=== PATIENT | female | born 1940 | race Caucasian/White ===

== ENCOUNTER 2018-12-24 21:04 | Emergency (ER) | payer MEDICARE ==
[2018-12-24] MEDS ORDERED: 0.9 % SODIUM CHLORIDE 1,000 ML BAG IV ONE (21:26)
--- NOTE | 2018-12-24 21:35 | Emergency Department Record ---
History of Present Illness - General Chief Complaint: General Stated Complaint: CONSTIPATION/STOMACH PAIN Time Seen by Provider: 12/24/18 21:22 Source: Patient Mode of Arrival: Ambulatory Limitations: No limitations - History of Present Illness Initial Comments: The patient is here due to constipation and diffuse AP for the last 2 days. She has been having smaller stools recently and has been taking stool softeners with no improvement. The patient denies any nausea, vomiting, diarrhea, fever, dysuria, or any hx of any abdominal surgeries. MD Complaint: Abdominal pain Onset/Timin -: Days(s) - Related Data Patient : No Home Medications Medication Instructions Recorded Confirmed Last Taken Fluoxetine HCl 40 mg PO DAILY 12/24/18 12/24/18 12/24/18 Levothyroxine Sodium [Synthroid] 88 mcg PO DAILY 12/24/18 12/24/18 12/24/18 Lisinopril 2.5 mg PO DAILY 12/24/18 12/24/18 12/24/18 Metoprolol Succinate 25 mg PO DAILY 12/24/18 12/24/18 12/24/18 Previous Rx's Medication Instructions Recorded Nitrofurantoin [place] [Macrobid] 100 mg PO BID #14 capsule 12/24/18 Allergies Allergy/AdvReac Type Severity Reaction Status Date / Time Sulfa (Sulfonamide Allergy HIVES Verified 12/24/18 21:09 Antibiotics) Travel Screening - Travel/Exposure Within Last 30 Days Have you traveled within the last 30 days?: No - Travel/Exposure Within Last Year Have you traveled outside the [place] in the last year?: No - Additonal Travel Details Have you been exposed to anyone with a communicable illness?: No - Travel Symptoms Symptom Screening: None Past Medical History - SOCIAL HISTORY Smoking Status: Never smoker Alcohol Use: None Drug Use: None - RESPIRATORY Hx Respiratory Disorders: No - CARDIOVASCULAR Hx Cardio Disorders: Yes Hx Hypertension: Yes - NEURO Hx Neuro Disorders: No - GI Hx GI Disorders: No - Hx Genitourinary Disorders: No - ENDOCRINE Hx Endocrine Disorders: Yes Hx Thyroid Disease: Yes - MUSCULOSKELETAL Hx Musculoskeletal Disorders: No - PSYCH Hx Psych Problems: Yes Hx Anxiety: Yes - HEMATOLOGY/ONCOLOGY Hx Hematology/Oncology Disorders: No Family Medical History Any Significant Family History?: No Physical Exam - General General Appearance: Alert, Oriented x3, Cooperative, No acute distress - Head Head exam: Atraumatic, Normocephalic, Normal inspection - Eye Eye exam: Normal appearance, PERRL, EOMI - ENT Throat exam: Normal inspection. negative: Tonsillar erythema, Tonsillar exudate - Neck Neck exam: Normal inspection, Full ROM. negative: Tenderness - Respiratory Respiratory exam: Normal lung sounds bilaterally. negative: Respiratory distress - Cardiovascular Cardiovascular Exam: Regular rate, Normal rhythm, Normal heart sounds - GI/Abdominal GI/Abdominal exam: Soft, Normal bowel sounds, Tenderness (There is very mild diffuse abdominal tenderness in all 4 quads worse in the lower abdomen.). negative: Guarding, Hernia, Pulsatile mass, Rebound, Rigid - Rectal Rectal exam: Heme (-) stool, Normal rectal tone. negative: Fecal impaction ( The stool is soft and clearly there is no impaction.), Tenderness - Extremities Extremities exam: Normal inspection, Full ROM, Normal capillary refill. negative: Tenderness - Neurological Neurological exam: Alert, Normal gait. negative: Abnormal gait, Motor sensory deficit Course Vital Signs 12/24/18 12/24/18 21:11 21:13 Temperature 98.9 F 98.9 F Pulse Rate [ 122 H Pulse Ox Probe] Respiratory 24 Rate Blood Pressure 137/75 [Left Arm] Pulse Ox 92 L - Reevaluation(s) Reevaluation #1: The patient is doing better after we drained 800 mls of urine out of the patient 's bladder and her AP and tenderness did resolve. She was able to have a small BM. The patient clearly was improved and it appears she most likely was constipated due to the problems urinating and the UTI. She is to continue the Macrobid at home and take the bottle of Mg Citrate in the AM tomorrow. She is to return to the ER in 12 hours for recheck of the urine issues and kidney function. 12/24/18 23:41 Medical Decision Making - Data Complexity MDM Data: Labs Ordered and/or Reviewed, X-Ray Ordered and/or Reviewed - Lab Data Result diagrams: 12/24/18 21:33 12/24/18 21:33 - Radiology Data Radiology results: Report reviewed (CT: Neg for acute process. Pos for constipation.) Disposition Disposition: Discharge Clinical Impression: UTI (urinary tract infection) Qualifiers: Urinary tract infection type: site unspecified Hematuria presence: without hematuria Qualified Code(s): N39.0 - Urinary tract infection, site not specified Disposition: Home, Self-Care Condition: (2) Stable Instructions: Constipation (ED), Urinary Tract Infection in Women (ED) Additional Instructions: Please drink the bottle of Mag citrate slowly in the morning. Please also continue the Macrobid as directed. Please return to the ER in 12 hours for recheck and sooner for any pain, fever, or vomiting. Prescriptions: Nitrofurantoin [place] [Macrobid] 100 mg PO BID #14 capsule Forms: Patient Portal Access Time of Disposition: 23:38 Quality - Quality Measures Quality Measures: N/A - Blood Pressure Screening View Details: Yes Does Patient Have Any of the Following: Active Dx of HTN Blood Pressure Classification: Hypertensive Reading Systolic Measurement: 150 Diastolic Measurement: 75 Screening for High Blood Pressure: Patient Exclusion, Hx of HTN [[id number]]
[2018-12-24 21:39] LABS: BASO % 0.1 % (0-6); EOS % 0.1 % (0-6); HEMATOCRIT 39.3 % (35.0-47.0); HEMOGLOBIN 13.1 gm/dl (11.6-16.0); LYMPH % 12.7 % (16-45); MEAN CELL VOLUME 97.5 fl (81-97); MEAN CORPUSCULAR HEMOGLOBIN 32.5 pg (27-33); MEAN CORPUSCULAR HGB CONC 33.3 g/dl (32-36); MEAN PLATELET VOLUME 8.9 fl (7.4-10.4); MONO % 7.1 % (0-9); PLATELET COUNT 233 K/uL (130-400); RED BLOOD COUNT 4.03 M/uL (3.80-5.40); RED CELL DISTRIBUTION WIDTH 13.7 % (11.5-14.5); WHITE BLOOD COUNT W/O DIFF 13.6 K/uL (4.2-12.2)
[2018-12-24 21:48] LABS: BILIRUBIN,TOTAL 1.6 mg/dL (0.2-1.0); CREATININE 1.2 mg/dL (0.5-0.9)
[2018-12-24 21:49] LABS: TOTAL PROTEIN 7.6 g/dL (6.6-8.7)
[2018-12-24 21:53] LABS: ALBUMIN 4.2 g/dL (4.0-5.0); BILIRUBIN,DIRECT 0.3 mg/dL (0-0.3)
[2018-12-24 23:15] LABS: URINE APPEARANCE CLOUDY; URINE BILIRUBIN NEGATIVE (NEGATIVE); URINE BLOOD LARGE (NEGATIVE); URINE COLOR YELLOW; URINE GLUCOSE (UA) NEGATIVE (NEGATIVE); URINE KETONE NEGATIVE (NEGATIVE); URINE LEUKOCYTE ESTERASE LARGE (NEGATIVE); URINE NITRITE NEGATIVE (NEGATIVE); URINE PROTEIN TRACE (NEGATIVE); URINE UROBILINOGEN 0.2 E.U./dL (0.20 - 1.00)
[2018-12-24 23:22] LABS: URINE BACTERIA 4+; URINE EPITHELIAL CELLS NONE SEEN (FEW); URINE RBC 0 - 2 (NONE SEEN); URINE WBC 21 - 35 (0-2/hpf)
[2018-12-24] MEDS ORDERED: NITROFURANTOIN MONO 100 MG CAPSULE PO ONE (23:23)
[2018-12-24] MEDS ORDERED: MAGNESIUM CITRATE 296 ML BTL PO ONE (23:33)
--- NOTE | 2018-12-27 14:58 | CT SCAN REPORT ---
EXAM: CT OF THE ABDOMEN AND PELVIS WITHOUT CONTRAST HISTORY: ABDOMINAL PAIN. CONSTIPATION FOR TWO DAYS. TECHNIQUE: Helical CT examination of the abdomen and pelvis was performed without oral or intravenous contrast administration. Lack of oral and IV contrast utilization limits evaluation of the bowel and solid viscera respectively. Comparison: None. FINDINGS: The lung bases are grossly clear though evaluation is limited by respiratory motion artifact. Minor linear scarring versus atelectasis is suspected in the anterior lung bases. The heart is not enlarged. No suspicious focal abnormality demonstrated in the liver, spleen, pancreas, adrenal glands, nor kidneys though, again, evaluation is mildly limited by patient motion. The gallbladder is surgically absent. No gross biliary ductal dilatation is seen. There is a possible small sliding type hiatal hernia. No intraabdominal nor retroperitoneal lymphadenopathy. There is mild diffuse atherosclerosis without focal aneurysmal dilatation of the abdominal aorta nor iliac arteries. There is moderate distention of the urinary bladder. No focal urinary bladder wall abnormality. The uterus is likely atrophic. No suspicious pelvis mass, lymphadenopathy or free pelvic fluid. There are calcifications scattered within the lower pelvis, likely vascular in origin. There is a moderate to large amount of stool within the left colon. No gross bowel dilatation nor bowel wall thickening. The appendix is at least partially visualized and without evidence of appendicitis. No lytic or blastic bone lesion. There are degenerative changes scattered throughout the visualized spine most pronounced at the lower lumbar levels where facet arthropathy is moderate. IMPRESSION: 1. EXAM MILDLY LIMITED BY MOTION ARTIFACT. 2. NO CONVINCING CT EVIDENCE OF AN ACUTE INTRAABDOMINAL NOR INTRAPELVIC PROCESS. 3. LARGE AMOUNT OF STOOL WITHIN THE LEFT COLON AND RECTUM. THE DISTAL RECTUM/ ANUS EXTENDS QUITE INFERIOR TO THE PUBOCOCCYGEAL LINE WITH RECTOCELE/PROLAPSE NOT EXCLUDED. CORRELATION WITH PHYSICAL EXAMINATION IS RECOMMENDED. 4. THE APPENDIX IS VISUALIZED AND WITHOUT EVIDENCE OF DIVERTICULITIS. 5. NOT MENTIONED ABOVE ARE SMALL HYPODENSE MASSES ARISING EXOPHYTICALLY FROM THE LOWER POLE OF THE LEFT KIDNEY MEASURING 10 MM AND 13 MM IN MAXIMUM DIAMETER RESPECTIVELY. THESE HAVE FLUID DENSITY. THEY ARE LIKELY BENIGN CYSTS. JOB NUMBER: [id number] [facility]
== END 2018-12-24 23:45 | disposition home or self-care (01) ==
LOC: ER 21:04
DX: N39.0 Urinary tract infection, site not specified (principal); R31.29 Other microscopic hematuria; R10.84 Generalized abdominal pain; I10 Essential (primary) hypertension
CPT/HCPCS: 74176; 80048; 80076; 81001; 83605; 83690; 85025; 99284; J7030

== ENCOUNTER 2018-12-25 16:11 | Emergency (ER) | payer MEDICARE ==
--- NOTE | 2018-12-25 16:52 | Emergency Department Record ---
History of Present Illness - General Chief Complaint: Recheck - Other Stated Complaint: RECHECK Time Seen by Provider: 12/25/18 16:33 Source: Patient, RN notes reviewed - History of Present Illness Initial Comments: here for a recheck of urinary retention and she states she is urinating well and she took the bottle of citrate of magnesium and had 10 bms and her abdomen feels better Onset/Timin -: Days(s) Initial Visit For: Other Returns Today for: Other Symptoms Since Prior Visit: No new symptoms, Improved Associated Symptoms: None - Related Data Previous Rx's Medication Instructions Recorded Nitrofurantoin [place] [Macrobid] 100 mg PO BID #14 capsule 12/24/18 Allergies Allergy/AdvReac Type Severity Reaction Status Date / Time Sulfa (Sulfonamide Allergy HIVES Verified 12/25/18 16:24 Antibiotics) Travel Screening - Travel/Exposure Within Last 30 Days Have you traveled within the last 30 days?: No - Travel/Exposure Within Last Year Have you traveled outside the [place] in the last year?: No - Additonal Travel Details Have you been exposed to anyone with a communicable illness?: No - Travel Symptoms Symptom Screening: None Review of Systems Reviewed: No additional complaints except as noted below Constitutional: Reports: As per HPI. Denies: Chills, Fever, Malaise, Night sweats, Weakness, Weight change Eyes: Reports: As per HPI. Denies: Eye discharge, Eye pain, Photophobia, Vision change ENT: Reports: As per HPI. Denies: Congestion, Dental pain, Ear pain, Epistaxis , Hearing loss, Throat pain Respiratory: Reports: As per HPI. Denies: Cough, Dyspnea, Hemoptysis, Stridor, Wheezes Cardiovascular: Reports: As per HPI. Denies: Arrhythmia, Chest pain, Dyspnea on exertion, Edema, Murmurs, Orthopnea, Palpitations, Paroxysmal nocturnal dyspnea, Rheumatic Fever, Syncope Endocrine: Reports: As per HPI. Denies: Fatigue, Heat or cold intolerance, Polydipsia, Polyuria Gastrointestinal: Reports: As per HPI. Denies: Abdominal pain, Constipation, Diarrhea, Hematemesis, Hematochezia, Melena, Nausea, Vomiting Genitourinary: Reports: As per HPI. Denies: Abnormal menses, Discharge, Dyspareunia, Dysuria, Frequency, Hematuria, Incontinence, Retention, Urgency Musculoskeletal: Reports: As per HPI. Denies: Arthralgia, Back pain, Gout, Joint swelling, Myalgia, Neck pain Skin: Reports: As per HPI. Denies: Bruising, Change in color, Change in hair/ nails, Lesions, Pruritus, Rash Neurological: Reports: As per HPI. Denies: Abnormal gait, Confusion, Headache, Numbness, Paresthesias, Seizure, Tingling, Tremors, Vertigo, Weakness Psychiatric: Reports: As per HPI. Denies: Anxiety, Auditory hallucinations, Depression, Homicidal thoughts, Suicidal thoughts, Visual hallucinations Hematological/Lymphatic: Reports: As per HPI. Denies: Anemia, Blood Clots, Easy bleeding, Easy bruising, Swollen glands Past Medical History - SOCIAL HISTORY Smoking Status: Never smoker Alcohol Use: None Drug Use: None - RESPIRATORY Hx Respiratory Disorders: No - CARDIOVASCULAR Hx Cardio Disorders: Yes Hx Hypertension: Yes - NEURO Hx Neuro Disorders: No - GI Hx GI Disorders: No - Hx Genitourinary Disorders: No - ENDOCRINE Hx Endocrine Disorders: Yes Hx Thyroid Disease: Yes - MUSCULOSKELETAL Hx Musculoskeletal Disorders: No - PSYCH Hx Psych Problems: Yes Hx Anxiety: Yes - HEMATOLOGY/ONCOLOGY Hx Hematology/Oncology Disorders: No Family Medical History Any Significant Family History?: Yes Hx Cancer: Mother Hx Liver Disease: Father Physical Exam - General General Appearance: Alert, Oriented x3, Cooperative, No acute distress - Head Head exam: Normal inspection - Eye Eye exam: Normal appearance, PERRL Pupils: Normal accommodation - ENT ENT exam: Normal exam, Mucous membranes moist, Normal external ear exam, Normal orophraynx, TM's normal bilaterally Ear exam: Normal external inspection. negative: External canal tenderness Nasal Exam: Normal inspection. negative: Discharge, Sinus tenderness Mouth exam: Normal external inspection, Tongue normal Teeth exam: Normal inspection. negative: Dental caries Throat exam: Normal inspection. negative: Tonsillar erythema, Tonsillar exudate - Neck Neck exam: Normal inspection, Full ROM. negative: Tenderness - Respiratory Respiratory exam: Normal lung sounds bilaterally. negative: Respiratory distress - Cardiovascular Cardiovascular Exam: Regular rate, Normal rhythm, Normal heart sounds - GI/Abdominal GI/Abdominal exam: Soft, Normal bowel sounds. negative: Tenderness - Rectal Rectal exam: Deferred - exam: Deferred - Extremities Extremities exam: Normal inspection, Full ROM, Normal capillary refill. negative: Tenderness - Back Back exam: Reports: Normal inspection, Full ROM. Denies: Muscle spasm, Rash noted, Tenderness - Neurological Neurological exam: Alert, Normal gait, Oriented X3, Reflexes normal - Psychiatric Psychiatric exam: Normal affect, Normal mood - Skin Skin exam: Dry, Intact, Normal color, Warm Course Vital Signs 12/25/18 16:24 Temperature 98.1 F Pulse Rate 107 H Respiratory 18 Rate Blood Pressure 122/77 Pulse Ox 98 - Reevaluation(s) Reevaluation #1: bladder scan today only had 20 ml post void and she feels fine 12/25/18 16:49 Disposition Clinical Impression: Constipation Qualifiers: Constipation type: unspecified constipation type Qualified Code(s): K59.00 - Constipation, unspecified Condition: (1) Good Instructions: Constipation (ED), High Fiber Diet (ED) Additional Instructions: use metamucil one scoop per day Follow up with Dr Malin in 3 -4 days Time of Disposition: 16:51 Quality - Quality Measures Quality Measures: N/A - Blood Pressure Screening Does Patient Have Any of the Following: No Blood Pressure Classification: Pre-Hypertensive BP Reading Systolic Measurement: 122 Diastolic Measurement: 77 Screening for High Blood Pressure: < Pre-Hypertensive BP, F/U Documented > [ [id number]] Pre-Hypertensive Follow-up Interventions: Referral to alternative/primary care provider.
== END 2018-12-25 17:05 | disposition home or self-care (01) ==
LOC: ER 16:11
DX: K59.00 Constipation, unspecified (principal); R33.9 Retention of urine, unspecified
CPT/HCPCS: 99282